=== PATIENT | male | born 1945 | race Hispanic/Latino ===

== ENCOUNTER → 2018-06-19 | Day surgery (SDC) | payer MEDICARE ==
[2018-06-17 09:59] LABS: BASOPHILS % 0.4 % (0.0-1.0); EOSINOPHILS # (AUTO) 0.2 (0.0-0.4); EOSINOPHILS % 2.7 % (0.0-6.0); HEMATOCRIT 40.3 % (38.2-49.6); HEMOGLOBIN 13.7 g/dL (14.0-18.0); LYMPHOCYTES # (AUTO) 1.1 (1.0-3.2); LYMPHOCYTES % 19.3 % (18.0-39.1); MEAN CORPUSCULAR HEMOGLOBIN 30.6 pg (28-32); MEAN CORPUSCULAR VOLUME 90.2 fL (81-99); MONOCYTES # (AUTO) 0.6 (0.2-0.8); MONOCYTES % 9.9 % (4.4-11.3); NEUTROPHILS # (AUTO) 3.8 (2.1-6.9); NEUTROPHILS % 67.3 % (38.7-80.0); PLATELET COUNT 195 x10e3/uL (140-360); RED BLOOD COUNT 4.47 x10e6/uL (4.3-5.7); RED CELL DISTRIBUTION WIDTH 13.7 % (11.7-14.4)
--- NOTE | 2018-06-17 10:15 | Diagnostic Imaging Report ---
EXAMINATION: PA and lateral views of the chest. COMPARISON: None CLINICAL HISTORY: Preoperative study for hand surgery DISCUSSION: The lungs are well-inflated and without focal airspace consolidation, pleural effusion, or pneumothorax. Tortuous thoracic aorta with an otherwise normal cardiomediastinal contour. No pulmonary edema. No acute osseous abnormality. Healed right eighth rib fracture. IMPRESSION: No acute cardiopulmonary abnormalities. Signed by: Dr. Jamal Christina M.D. on 06/17/2018 10:12 AM
[~2018-06-19] MED LIST: ATORVASTATIN CA20 MG PO; BACITRACIN 50,000 UNIT VIAL ONE; BUPIVACAINE HCL 0.5% INJ 30 ML VIAL INJ ONE; CEFAZOLIN SOD 2 GM/D5W 50ML 50 ML IV ONE; DEXAMETHASONE SOD PHOS INJ 4 MG/ML VIAL ONE; FENTANYL CITRATE/PF 100MCG/2 ML INJ ONE; LEVOTHYROXINE PO; LIDOCAINE HCL 2% LOCAL INJ 5 ML SDV VIAL INJ ONE; LOSARTAN POTASS25 MG; MIDAZOLAM HCL 2 MG/2 ML VIAL ONE; ONDANSETRON HCL INJ 2MG/ML 2ML 2 MG/ML VIAL ONE; PROPOFOL IV EMULSION 10 MG/ML 20 ML VIAL ONE; SERTRALINE HCL50 MG PO; SEVOFLURANE INHAL SOLN 250 ML PEN BTL ONE
--- OUTSIDE RECORDS SUMMARY | 2018-06-19 09:20 | XMS REPORT ---
[facility] Address Unknown Phone Unavailable Care Team Providers Care Pharmaceutical Scientist Name Role Phone VIRAJ CHAUHAN Unavailable Unavailable Problems This patient has no known problems. Allergies, Adverse Reactions, Alerts This patient has no known allergies or adverse reactions. Medications This patient has no known medications. Results Test Description Test Time Test Comments Text Results Atomic Results Result Comments CHEST 2 VIEWS 2018-06-17 10:08:00 [place] [id number] Patient Name: GLADIS HANDLEY MR #: [id number] : 1945 Age/Sex: 72/M Req #: [id number] [facility] Physician: Ordered by: VIRAJ CHAUHAN MD Report #: [id number] Location: OR Room/Bed: Procedure: [id number] DX/CHEST 2 VIEWS Exam Date: 06/17/18 Exam Time: 0953 REPORT STATUS: Signed EXAMINATION: PA and lateral views of the chest. CO MPARISON: None CLINICAL HISTORY: Preoperative study for hand surgery DISCUSSION: The lungs are well-inflated and without focal airspace consolidation, pleural effusion, or pneumothorax. Tortuous thoracic aorta with an otherwise normal cardiomediastinal contour. No pulmonary edema. No acute osseous abnormality. Healed right eighth rib fracture. IMPRESSION: No acute cardiopulmonary abnormalities. Signed by: Dr. Eddie Hernandez M.D. on 06/17/2018 10:12 AM Dictated By: EDDIE HERNANDEZ MD 1012 Transcribed By: GALO on 06/17/18 1012 COPY TO: VIRAJ CHAUHAN MD
[2018-06-19 14:55] VITALS: BP 114/81
--- NOTE | 2018-06-21 00:16 | Operative Report ---
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 OPERATION AND PROCEDURE PERFORMED: The patient underwent an amputation of the left long finger through the middle phalanx. MANAGER REGIONAL: HERON Martin ANESTHESIA: General endotracheal intubation anesthesia. IV FLUIDS: Per the anesthesia record. BLOOD LOSS: Minimal. BRIEF DESCRIPTION OF THE PATIENT'S OPERATIVE PROCEDURE: Mr. Payne was taken to the operating room, placed in supine position on the operating table. Following induction of general anesthesia as well as endotracheal intubation, the patient's left upper extremity was examined under anesthesia. He was found to have a near complete amputation of his left long finger through the distal phalanx. His injury occurred just proximal to the base of the fingernail and had only a thin skin bridge on the volar surface of his long finger. The patient's upper extremities were prepped and draped in a standard surgical fashion. The case was begun by providing an amputation of the distal aspect of the finger. A fishmouth type incision was created overlying the distal aspect of the middle phalanx. This incision was carried to bone. The amputated portion of the finger was then passed to the back table. The joint was disarticulated and a sagittal saw was used to shorten the middle phalanx roughly at the level of the condyles of the middle phalanx. The wound was copiously irrigated. The soft tissues were then closed in a multilayer fashion. Sterile dressings were then applied. The finger was placed in an aluminum splint. He was then awakened and taken to the postanesthesia care unit in stable condition. MD CORNELIUS Pires/HERMANL /[id number]
== END | disposition home or self-care (01) ==
LOC: OR 09:18
PROVIDERS: ATTEND Specialist
DX: S68.123A Partial traumatic metacarpophalangeal amputation of left middle finger, initial encounter (principal); I10 Essential (primary) hypertension; E78.00 Pure hypercholesterolemia, unspecified; E05.90 Thyrotoxicosis, unspecified without thyrotoxic crisis or storm; R00.1 Bradycardia, unspecified; F17.210 Nicotine dependence, cigarettes, uncomplicated; X58.XXXA Exposure to other specified factors, initial encounter; Y93.89 Activity, other specified; Y99.8 Other external cause status; Z01.810 Encounter for preprocedural cardiovascular examination; Z01.812 Encounter for preprocedural laboratory examination; Z01.818 Encounter for other preprocedural examination
CPT/HCPCS: 26951; 36415; 71046; 85025; 93005; J0690; J1100; J2001; J2250; J2405; J2704